=== PATIENT | male | born 1955 | race Caucasian/White ===

== ENCOUNTER → 2018-05-13 | Outpatient (CLI) | payer BC ==
[2018-05-13] MEDS: SOD CHLORIDE 0.9% 100 ML (12:40)
[2018-05-13] MEDS: NITROGLYCERIN AEROSOL (4.9 GM) (12:45)
[2018-05-13] MEDS: IOHEXOL 100 ML (13:21)
== END | disposition home or self-care (01) ==
LOC: C/S 11:53
DX: R07.9 Chest pain, unspecified (principal)
CPT/HCPCS: 75571; 75574

== ENCOUNTER 2018-05-29 17:10 | Inpatient (IN) | payer BC ==
[2018-05-29] MEDS: ONDANSETRON 4 MG INJ IV (18:24)
[2018-05-29] MEDS: SOD CHLORIDE 0.9% 1,000 ML IV (18:24)
[2018-05-29] MEDS: morphine 4 MG/ML VIAL IV (18:24)
[2018-05-29 18:28] LABS: ABNORMAL IP MESSAGE 1; HEMATOCRIT 37.1 % (42.0-52.0); HEMOGLOBIN 11.1 g/dl (14.0-18.0); MEAN CORPUSCULAR HEMOGLOBIN 20.8 pg (29.0-33.0); MEAN CORPUSCULAR HGB CONC 29.9 g/dl (32.0-37.0); MEAN CORPUSCULAR VOLUME 69.5 fl (82.0-101.0); PLATELET COUNT 88 10^3/UL (140-415); POSITIVE DIFF @See below; RED BLOOD COUNT 5.34 10^6/ul (4.70-6.10); RED CELL DISTRIBUTION WIDTH 20.5 % (11.5-14.5)
[2018-05-29 18:28] LABS: WHITE BLOOD COUNT 12.8 10^3/ul (4.8-10.8)
[2018-05-29 18:34] LABS: ADD MAN DIFF? YES
[2018-05-29 18:47] LABS: LACTIC ACID 1.3 mmol/L (0.5-2.0)
[2018-05-29 18:48] LABS: ALANINE AMINOTRANSFERASE 32 IU/L (13-69); ALBUMIN 4.1 g/dl (3.3-4.9); ALKALINE PHOSPHATASE 102 IU/L (42-121); AMYLASE 66 U/L (11-123); ANION GAP 13 (5-13); ASPARTATE AMINO TRANSFERASE 45 IU/L (15-46); BLOOD UREA NITROGEN 16 mg/dl (7-20); CALCIUM 8.9 mg/dl (8.4-10.2); CARBON DIOXIDE 23 mmol/L (21-31); CHLORIDE 105 mmol/L (97-110); CREATININE 0.99 mg/dl (0.61-1.24); Estimated GFR > 60 mL/min (>60); GLUCOSE 114 mg/dl (70-220); LIPASE 27 U/L (23-300); POTASSIUM 4.2 mmol/L (3.5-5.1); SODIUM 141 mmol/L (135-144); TOTAL PROTEIN 7.8 g/dl (6.1-8.1)
[2018-05-29 18:57] LABS: INR 1.34; PROTIME 16.8 Sec (11.9-14.9); PT RATIO 1.3
[2018-05-29 19:00] LABS: TROPONIN-I < 0.012 ng/ml (0.000-0.120)
[2018-05-29 19:11] LABS: ANISOCYTOSIS 2+ (0-0); BAND NEUTROPHILS #M 0.7 10^3/ul (0.0-0.6); BAND NEUTROPHILS % (M) 6 % (0-4); ERYTHROBLAST% (NRBC) (M) 1 % (0-0); HYPOCHROMASIA 1+ (0-0); LYMPHOCYTES #M 1.2 10^3/ul (0.8-2.9); LYMPHOCYTES % (M) 10 % (15-51); MICROCYTOSIS 1+ (0-0); MONOCYTE #M 0.5 10^3/ul (0.3-0.9); MONOCYTES % (M) 4 % (0-11); PLATELET ESTIMATE DECREASED; POLYCHROMASIA 2+ (0-0); SEG NEUT #M 10.3 10^3/ul (1.6-7.5); SEGMENTED NEUTROPHILS (M) % 80 % (39-77); SMUDGE%M 1 % (0-0)
[2018-05-29] MEDS: SOD CHLORIDE 0.9% 100 ML (19:34)
[2018-05-29] MEDS: IOHEXOL 300MG/ML 150 ML BTL (19:34)
[2018-05-29 21:57] LABS: ADD UMIC NO; UR ASCORBIC ACID NEGATIVE (NEGATIVE); UR BILIRUBIN (Dip) NEGATIVE (NEGATIVE); UR BLOOD (Dip) NEGATIVE (NEGATIVE); UR CLARITY CLEAR (CLEAR); UR COLOR YELLOW (YELLOW); UR GLUCOSE (Dip) NEGATIVE (NEGATIVE); UR KETONES (Dip) 1+ mg/dL (NEGATIVE); UR LEUKOCYTE ESTERASE (Dip) NEGATIVE Leu/ul (NEGATIVE); UR NITRITE (Dip) NEGATIVE (NEGATIVE); UR SPECIFIC GRAVITY (Dip) 1.041 (1.003-1.030); UR TOTAL PROTEIN (Dip) NEGATIVE (NEGATIVE); UR UROBILINOGEN (Dip) 2+ mg/dL (NEGATIVE)
[2018-05-29] MEDS ORDERED: ACETAMINOPHEN 325 MG TAB PO (22:30)
[2018-05-29] MEDS ORDERED: ONDANSETRON 4 MG INJ IV (22:30)
[2018-05-30] MEDS ORDERED: NACL 0.9% 3 ML SYG IV (02:00)
[2018-05-30] MEDS ORDERED: ACETAMINOPHEN 325 MG TAB PO (02:00)
[2018-05-30] MEDS ORDERED: NITROGLYCERIN (SL) 0.4 MG TAB SL (02:00)
[2018-05-30 03:00] LABS: CREATINE KINASE 39 IU/L (23-200)
[2018-05-30 03:14] LABS: CK INDEX 0.6; CK-MB < 0.22 ng/ml (0.0-2.4); TROPONIN-I < 0.012 ng/ml (0.000-0.120)
[2018-05-30] MEDS: HYDROCODONE/APAP (5/325) TAB PO (06:20)
[2018-05-30] MEDS: HYDROmorphONE 2 MG/ML SYG IV (08:05)
[2018-05-30] MEDS: ASPIRIN 81 MG TAB PO (08:21)
[2018-05-30] MEDS: FAMOTIDINE 20 MG INJ IV ×2 (08:21→21:15)
[2018-05-30 08:52] LABS: ADD MAN DIFF? NO
[2018-05-30 09:03] LABS: WHITE BLOOD COUNT 14.4 10^3/ul (4.8-10.8)
[2018-05-30 09:03] LABS: ABNORMAL IP MESSAGE 1; BASOPHILS % 0.1 % (0.0-2.0); EOSINOPHILS % 0.1 % (0.0-7.0); HEMATOCRIT 38.6 % (42.0-52.0); HEMOGLOBIN 11.5 g/dl (14.0-18.0); LYMPHOCYTES # 1.9 10^3/ul (0.8-2.9); LYMPHOCYTES % 13.2 % (15.0-51.0); MEAN CORPUSCULAR HEMOGLOBIN 20.9 pg (29.0-33.0); MEAN CORPUSCULAR HGB CONC 29.8 g/dl (32.0-37.0); MEAN CORPUSCULAR VOLUME 70.2 fl (82.0-101.0); MONOCYTE # 1.7 10^3/ul (0.3-0.9); MONOCYTES % 12.1 % (0.0-11.0); NEUTROPHIL # 10.7 10^3/ul (1.6-7.5); NEUTROPHILS % 74.1 % (39.0-77.0); POSITIVE DIFF @See below; RED CELL DISTRIBUTION WIDTH 20.8 % (11.5-14.5)
[2018-05-30 09:07] LABS: PLATELET COUNT 90 10^3/UL (140-415)
[2018-05-30 09:08] LABS: HEMOGLOBIN A1C 5.9 % (0-5.9)
[2018-05-30 09:13] LABS: ANION GAP 11 (5-13); BLOOD UREA NITROGEN 14 mg/dl (7-20); CALCIUM 8.6 mg/dl (8.4-10.2); CARBON DIOXIDE 23 mmol/L (21-31); CHLORIDE 104 mmol/L (97-110); CREATINE KINASE 47 IU/L (23-200); CREATININE 1.04 mg/dl (0.61-1.24); Estimated GFR > 60 mL/min (>60); GLUCOSE 97 mg/dl (70-220); IRON 33 ug/dl (35-150); POTASSIUM 4.3 mmol/L (3.5-5.1); SODIUM 138 mmol/L (135-144)
[2018-05-30 09:14] LABS: HDL CHOLESTEROL 29 mg/dl (30-78); LDL CHOLESTEROL,CALCULATED 71 mg/dl; TRIGLYCERIDES 79 mg/dl (0-149)
[2018-05-30 09:14] LABS: CHOLESTEROL 116 mg/dl (100-200)
[2018-05-30 09:22] LABS: CK INDEX 0.8; CK-MB 0.37 ng/ml (0.0-2.4)
[2018-05-30 09:24] LABS: % IRON SATURATION 7 % SAT (22-52); TOTAL IRON BINDING CAPACITY 469 ug/dl (241-421)
[2018-05-30 09:27] LABS: TROPONIN-I < 0.012 ng/ml (0.000-0.120)
[2018-05-30 09:49] LABS: FERRITIN 18.8 ng/ml (11.1-264.0)
[2018-05-30] MEDS: ONDANSETRON 4 MG INJ IV ×2 (10:41→17:48)
[2018-05-30 16:46] LABS: FREE T4 (FREE THYROXINE) 1.11 ng/dl (0.78-2.44)
[2018-05-30] MEDS: HYDROmorphONE 1 MG/ML SYG IV (17:43)
[2018-05-30] MEDS: SOD FERRIC GLUC COMPLX 125 MG in SOD CHLORIDE 0.9% 100 ML IVPB (17:44)
[2018-05-30] MEDS: APIXABAN 5 MG TABLET PO (17:48)
[2018-05-31] MEDS: HYDROmorphONE 1 MG/ML SYG IV ×2 (02:09→12:34)
[2018-05-31 07:07] LABS: ADD MAN DIFF? NO; HAAIG REFLEX REFLEX FILED
[2018-05-31 07:12] LABS: ABNORMAL IP MESSAGE 1; BASOPHILS % 0.2 % (0.0-2.0); EOSINOPHILS # 0.1 10^3/ul (0.0-0.5); EOSINOPHILS % 0.8 % (0.0-7.0); HEMATOCRIT 38.9 % (42.0-52.0); HEMOGLOBIN 11.2 g/dl (14.0-18.0); LYMPHOCYTES # 1.5 10^3/ul (0.8-2.9); LYMPHOCYTES % 13.5 % (15.0-51.0); MEAN CORPUSCULAR HEMOGLOBIN 20.4 pg (29.0-33.0); MEAN CORPUSCULAR HGB CONC 28.8 g/dl (32.0-37.0); MONOCYTE # 1.1 10^3/ul (0.3-0.9); MONOCYTES % 9.8 % (0.0-11.0); NEUTROPHIL # 8.4 10^3/ul (1.6-7.5); NEUTROPHILS % 75.3 % (39.0-77.0); POSITIVE DIFF @See below; RED BLOOD COUNT 5.48 10^6/ul (4.70-6.10); RED CELL DISTRIBUTION WIDTH 20.2 % (11.5-14.5)
[2018-05-31 07:12] LABS: WHITE BLOOD COUNT 11.2 10^3/ul (4.8-10.8)
[2018-05-31 07:26] LABS: PLATELET COUNT 90 10^3/UL (140-415)
[2018-05-31 07:36] LABS: ALANINE AMINOTRANSFERASE 27 IU/L (13-69); ALBUMIN 3.9 g/dl (3.3-4.9); ALBUMIN/GLOBULIN RATIO 1.18; ALKALINE PHOSPHATASE 100 IU/L (42-121); ANION GAP 10 (5-13); ASPARTATE AMINO TRANSFERASE 32 IU/L (15-46); BILIRUBIN,INDIRECT 0.9 mg/dl (0-1.1); BILIRUBIN,TOTAL 0.9 mg/dl (0.2-1.3); BLOOD UREA NITROGEN 17 mg/dl (7-20); CALCIUM 8.9 mg/dl (8.4-10.2); CARBON DIOXIDE 25 mmol/L (21-31); CHLORIDE 103 mmol/L (97-110); CREATININE 1.08 mg/dl (0.61-1.24); Estimated GFR > 60 mL/min (>60); GLUCOSE 94 mg/dl (70-220); MAGNESIUM 1.9 mg/dl (1.7-2.5); POTASSIUM 4.2 mmol/L (3.5-5.1); SODIUM 138 mmol/L (135-144); TOTAL PROTEIN 7.2 g/dl (6.1-8.1)
[2018-05-31 07:52] LABS: T3 UPTAKE 42.4 % (23.5-40.5)
[2018-05-31 07:54] LABS: FREE THYROXINE INDEX (Calc) 2.59 ug/ml (0.65-3.89); T4 (THYROXINE) 6.1 ug/dl (5.5-11.0)
[2018-05-31 08:07] LABS: HEPATITIS B SURFACE ANTIGEN NEGATIVE (NEGATIVE)
[2018-05-31 08:09] LABS: ALPHA FETOPROTEIN 1.64 IU/L (0.00-7.21)
[2018-05-31 08:25] LABS: HEPATITIS B CORE ANTIBODY NEGATIVE (NEGATIVE); HEPATITIS C VIRAL ANTIBODY NEGATIVE (NEGATIVE)
[2018-05-31] MEDS: FAMOTIDINE 20 MG INJ IV (08:45)
[2018-05-31] MEDS: HYDROCODONE/APAP (5/325) TAB PO (08:46)
[2018-05-31] MEDS: APIXABAN 5 MG TABLET PO (12:34)
[2018-05-31] MEDS: ONDANSETRON 4 MG INJ IV (12:41)
[2018-06-03 13:07] LABS: THYROID MICROSOMAL ANTIBODY 4 IU/mL (<9)
== END 2018-05-31 16:35 | disposition home or self-care (01) | DRG 815 ==
LOC: TEL 22:33 → E/R 17:10
DX: D73.5 Infarction of spleen (principal); K76.6 Portal hypertension; I48.92 Unspecified atrial flutter; I20.0 Unstable angina; I48.91 Unspecified atrial fibrillation; I10 Essential (primary) hypertension; E03.9 Hypothyroidism, unspecified; D50.9 Iron deficiency anemia, unspecified; D69.6 Thrombocytopenia, unspecified; N40.0 Benign prostatic hyperplasia without lower urinary tract symptoms; K40.90 Unilateral inguinal hernia, without obstruction or gangrene, not specified as recurrent; K75.81 Nonalcoholic steatohepatitis (NASH)
CPT/HCPCS: 36415; 74177; 74182; 80048; 80053; 80061; 81003; 82105; 82150; 82550; 82553; 82728; 83020; 83036; 83540; 83605; 83690; 83735; 84436; 84439; 84443; 84479; 84484; 85025; 85610; 85730; 86038; 86255; 86376; 86704; 86709; 86803; 87086; 87340; 90686; 93005; 93306; 96361; 96374; 96375; 99285-25; G0378

== ENCOUNTER 2019-01-23 10:48 | Emergency (ER) | payer MEDICARE, BC ==
[2019-01-23 11:34] LABS: ADD MAN DIFF? NO
[2019-01-23 11:39] LABS: ABNORMAL IP MESSAGE 1; BASOPHILS % 0.3 % (0.0-2.0); EOSINOPHILS # 0.1 10^3/ul (0.0-0.5); HEMOGLOBIN 15.6 g/dl (14.0-18.0); LYMPHOCYTES # 1.5 10^3/ul (0.8-2.9); LYMPHOCYTES % 25.5 % (15.0-51.0); MEAN CORPUSCULAR HEMOGLOBIN 30.2 pg (29.0-33.0); MEAN CORPUSCULAR HGB CONC 34.7 g/dl (32.0-37.0); MEAN PLATELET VOLUME 11.8 fl (7.4-10.4); MONOCYTE # 0.5 10^3/ul (0.3-0.9); MONOCYTES % 8.2 % (0.0-11.0); NEUTROPHIL # 3.9 10^3/ul (1.6-7.5); NEUTROPHILS % 64.7 % (39.0-77.0); PLATELET COUNT 76 10^3/UL (140-415); POSITIVE DIFF @See below; RED BLOOD COUNT 5.17 10^6/ul (4.70-6.10); RED CELL DISTRIBUTION WIDTH 13.6 % (11.5-14.5)
[2019-01-23 11:55] LABS: INR 1.04; PROTIME 13.7 Sec (11.9-14.9); PT RATIO 1.1
[2019-01-23 11:56] LABS: ALANINE AMINOTRANSFERASE 39 IU/L (13-69); ALKALINE PHOSPHATASE 142 IU/L (42-121); ANION GAP 10 (5-13); ASPARTATE AMINO TRANSFERASE 45 IU/L (15-46); BILIRUBIN,INDIRECT 1.2 mg/dl (0-1.1); BILIRUBIN,TOTAL 1.2 mg/dl (0.2-1.3); BLOOD UREA NITROGEN 19 mg/dl (7-20); CALCIUM 9.3 mg/dl (8.4-10.2); CARBON DIOXIDE 26 mmol/L (21-31); CHLORIDE 107 mmol/L (97-110); CREATININE 1.01 mg/dl (0.61-1.24); Estimated GFR > 60 mL/min (>60); GLUCOSE 168 mg/dl (70-220); LIPASE 54 U/L (23-300); PARTIAL THROMBOPLASTIN TIME 30.6 Sec (23.0-35.0); POTASSIUM 4.1 mmol/L (3.5-5.1); SODIUM 143 mmol/L (135-144)
[2019-01-23 12:08] LABS: TROPONIN-I 0.016 ng/ml (0.000-0.120)
[2019-01-23] MEDS: SOD CHLORIDE 0.9% 1,000 ML IV (12:32)
[2019-01-23] MEDS: DICYCLOMINE 20 MG INJ IM (12:32)
== END 2019-01-23 13:35 | disposition home or self-care (01) ==
LOC: E/R 10:48
DX: K74.60 Unspecified cirrhosis of liver (principal); I48.92 Unspecified atrial flutter; Z91.14 Patient's other noncompliance with medication regimen
CPT/HCPCS: 36415; 74176; 76705; 80053; 83690; 84484; 85025; 85610; 85730; 93005; 96372; 99285-25